=== PATIENT | female | born 1980 | race Two or more races ===

== ENCOUNTER 2018-03-08 12:25 | Inpatient (IN) | payer OTHER ==
[~2018-03-08] VITALS: Ht 170.2 cm; Wt 61.2 kg
[2018-03-31] MEDS ORDERED: PERCOCET 5-3251 EACH PO (13:27)
== END 2018-03-31 14:50 | disposition home or self-care (01) | DRG 330 ==
LOC: SURG 03-28 07:48 → O/R 03-28 07:48 → SURH 03-28 13:30 → SURG 03-28 14:34 → SURH 03-28 19:45 → SURG 03-31 14:50
PROVIDERS: Surgery
PROC: 0DTG4ZZ Resection of Left Large Intestine, Percutaneous Endoscopic Approach (ICD-10-PCS; principal; 2018-03-28 19:45)
DX: C18.6 Malignant neoplasm of descending colon (principal); C77.5 Secondary and unspecified malignant neoplasm of intrapelvic lymph nodes; K57.20 Diverticulitis of large intestine with perforation and abscess without bleeding; D50.0 Iron deficiency anemia secondary to blood loss (chronic)

== ENCOUNTER 2018-05-09 05:57 | Day surgery (SDC) | payer OTHER ==
[~2018-05-09 05:57] MED LIST: PERCOCET 5-3251 EACH PO
[2018-05-09] MEDS ORDERED: PERCOCET 5-3251 EACH PO (08:19)
== END 2018-05-09 09:40 | disposition home or self-care (01) ==
LOC: CIR.AMB 05:57
DX: C18.5 Malignant neoplasm of splenic flexure (principal)
CPT/HCPCS: 36561; C1751

== ENCOUNTER 2019-02-04 10:20 | Day surgery (SDC) | payer OTHER | END 2019-02-04 16:10 | disposition home or self-care (01) | LOC: AMB-ENDOS 10:20 | DX: K64.8 Other hemorrhoids (principal) ==

== ENCOUNTER 2019-04-17 05:20 | Day surgery (SDC) | payer OTHER ==
[2019-04-17] MEDS ORDERED: PERCOCET 5-3251 EACH PO (08:10)
== END 2019-04-17 11:30 | disposition home or self-care (01) ==
LOC: CIR.AMB 05:20
DX: C18.5 Malignant neoplasm of splenic flexure (principal)

== ENCOUNTER 2020-02-10 07:40 | Day surgery (SDC) | payer OTHER | END 2020-02-10 12:00 | disposition home or self-care (01) | LOC: AMB-ENDOS 07:40 | PROVIDERS: ATTEND Surgery | DX: K62.89 Other specified diseases of anus and rectum (principal); K64.8 Other hemorrhoids; Z20.828 Contact with and (suspected) exposure to other viral communicable diseases ==

== ENCOUNTER 2021-04-05 11:50 | Day surgery (SDC) | payer OTHER | END 2021-04-05 16:15 | disposition home or self-care (01) | LOC: AMB-ENDOS 11:50 | PROVIDERS: ATTEND Surgery | DX: K62.89 Other specified diseases of anus and rectum (principal) ==

== ENCOUNTER 2023-10-29 12:47 | Emergency (ER) | payer OTHER ==
[~2023-10-29] VITALS: Ht 170.2 cm; Wt 56.7 kg
[2023-10-29] MEDS ORDERED: 0.9 % SODIUM CHLORIDE 1,000 ML IV STA (13:05)
[2023-10-29] MEDS ORDERED: KETOROLAC TROMETHAMINE 30 MG VIAL IV ONE (13:15)
[2023-10-29 13:30] LABS: HEMOGLOBIN 12.2 g/dL (12.0-15.00); MEAN CELL VOLUME 86.6 fL (80.00-100.00); MEAN CORPUSCULAR HEMOGLOBIN 29.4 pg (27.00-32.0); MEAN CORPUSCULAR HGB CONC 33.9 g/dl (32.0-36.0); PLATELET COUNT 243 K/uL (150-450); RED BLOOD COUNT 4.15 M/uL (4.00-6.00)
[2023-10-29] MEDS ORDERED: DIATRIZOATE MEGLUMINE, SODIUM 30 ML BOTTLE PO ONE (13:30)
[2023-10-29 13:45] LABS: CALCIUM 8.9 mg/dL (8.5-10.1); CREATININE SERUM 0.64 mg/dL (0.55-1.02); GFR 100.81; POTASSIUM 4.05 mEq/L (3.5-5.1)
[2023-10-29 14:16] LABS: URINE APPEARANCE Clear; URINE BILIRRUBIN Negative (NEGATIVE); URINE BLOOD Small; URINE COLOR Yellow; URINE GLUCOSE Negative (NEGATIVE); URINE LEUKOCYTE Negative; URINE NITRATE Negative; URINE PROTEIN Negative (NEGATIVE); URINE UROBILINOGEN 0.2 E.U./dl
[2023-10-29 14:20] LABS: URINE BACTERIA 3.7 uL (0.0-1933); URINE EPITHELIAL CELLS 5.5 uL (0.0-38.8); URINE RBC 6.1 uL (0.0-20.8); URINE WBC 3.5 uL (0.0-23.2)
[2023-10-29] MEDS ORDERED: FAMOTIDINE/PF 20 MG in 0.9 % SODIUM CHLORIDE 8 ML IV PUSH STA (16:05)
[2023-10-29] MEDS ORDERED: MEPERIDINE HCL/PF 25 MG/ML VIAL IM ONE (16:15)
[2023-10-29] MEDS ORDERED: PROMETHAZINE HCL 25 MG/ML AMPUL IM ONE (16:15)
[2023-10-29] MEDS ORDERED: DICLOFENAC SODI75 MG PO (17:37)
== END 2023-10-29 17:47 | disposition home or self-care (01) ==
LOC: ER 12:48
PROVIDERS: Emergency Medicine
DX: R10.9 Unspecified abdominal pain (principal)
CPT/HCPCS: 36415; 74177; Q9965

== ENCOUNTER 2023-10-31 21:48 | Emergency (ER) | payer OTHER ==
[~2023-10-31] VITALS: Ht 170.2 cm; Wt 56.7 kg
[~2023-10-31 21:48] MED LIST changes: +DICLOFENAC SODI75 MG PO
[2023-11-01] MEDS ORDERED: MEPERIDINE HCL/PF 50 MG/ML VIAL IM STA (00:48)
[2023-11-01] MEDS ORDERED: 0.9 % SODIUM CHLORIDE 1,000 ML IV ONE (01:00)
[2023-11-01 01:41] LABS: HEMATOCRIT 34.2 % (36.0-45.00); MEAN CELL VOLUME 87.2 fL (80.00-100.00); MEAN CORPUSCULAR HGB CONC 33.7 g/dl (32.0-36.0); PLATELET COUNT 353 K/uL (150-450); RED BLOOD COUNT 3.92 M/uL (4.00-6.00)
[2023-11-01 02:02] LABS: HEMOGLOBIN 11.5 g/dL (12.0-15.00); MEAN CORPUSCULAR HEMOGLOBIN 29.3 pg (27.00-32.0)
[2023-11-01 02:05] LABS: INR 1.05; PARTIAL THROMBOPLASTIN TIME 28.2 SECONDS (22.0-34.0)
[2023-11-01 02:13] LABS: ALBUMIN 3.6 gm/dL (3.4-5.0); ALKALINE PHOSPHATASE 50 U/L (50-136); ALT/SGPT 10 U/L (12-78); AMYLASE 63 U/L (25-115); ANION GAP 9 (10.0-20.0); AST/SGOT 37 U/L (15-37); BILIRUBIN TOTAL 0.73 mg/dL (0.3-1.2); BLOOD UREA NITROGEN 2 mg/dL (7-18); BUN CREA RATIO 4 (7.0-25.0); CALCIUM 8.5 mg/dL (8.5-10.1); CARBON DIOXIDE 27 mEq/L (21-32); CHLORIDE 108 mmol/L (98-107); CREATININE SERUM 0.55 mg/dL (0.55-1.02); GFR 120.07; GLOBULINA 3.5 G/DL (2.4-3.5); GLUCOSE FASTING 97 mg/dL (65-100); LIPASE 41 U/L (13-75); OSMOLALITY SERUM 275 MOSM/KG (275-295); POTASSIUM 4.47 mEq/L (3.5-5.1); SODIUM 140 mmol/L (136-145); TOTAL PROTEIN 7.1 gm/dL (6.4-8.2)
[2023-11-01 02:39] LABS: HCG QUANTITATIVE < 1 mUI/mL (1-3)
[2023-11-01 02:57] LABS: PH,URINE 6.5 (5.0-8.0); URINE APPEARANCE Clear; URINE BILIRRUBIN Negative (NEGATIVE); URINE BLOOD Trace; URINE COLOR Yellow; URINE GLUCOSE Negative (NEGATIVE); URINE LEUKOCYTE Negative; URINE NITRATE Negative; URINE PROTEIN Negative (NEGATIVE); URINE UROBILINOGEN 0.2 E.U./dl
[2023-11-01 02:59] LABS: URINE RBC 4.1 uL (0.0-20.8)
[2023-11-01 03:05] LABS: URINE BACTERIA 3.7 uL (0.0-1933); URINE EPITHELIAL CELLS 1.3 uL (0.0-38.8)
[2023-11-01 03:17] LABS: BILIRUBIN,CONJUGATED 0.11 mg/dL (0.0-0.2); BILIRUBIN,UNCONJUGATED 0.62 mg/dL (0.0-0.6)
[2023-11-01] MEDS ORDERED: KETOROLAC TROMETHAMINE 30 MG VIAL IV STA (06:08)
[2023-11-01] MEDS ORDERED: METRONIDAZOLE500 MG PO (08:03)
[2023-11-01] MEDS ORDERED: CIPRO500 MG PO (08:03)
[2023-11-01] MEDS ORDERED: LEVSIN/SL0.125 MG SL (08:03)
[2023-11-01] MEDS ORDERED: MELOXICAM15 MG PO (08:03)
== END 2023-11-01 08:10 ==
LOC: ER 21:49
PROVIDERS: General Practice
DX: R10.32 Left lower quadrant pain (principal); Z85.038 Personal history of other malignant neoplasm of large intestine